=== PATIENT | male | born 1985 | race Hispanic/Latino ===

== ENCOUNTER 2017-10-14 11:58 | Emergency (ER) | payer SELFPAY ==
[~2017-10-14] VITALS: Ht 157.5 cm; Wt 84.0 kg
[~2017-10-14 11:58] MED LIST: CORTISPORIN OTI10 M1 OT; LORTAB 5/3255 MG PO; NO HOME MEDS; PRILOSEC OTC20 MG OR; TRIMOX500 MG PO; ZOFRAN ODT8 MG SL
[2017-10-14 13:00] LABS: HEMATOCRIT 43.6 % (39.0-50.0); IMMATURE GRANULOCYTES 0.5 % (0.0-1.0); MEAN CELL VOLUME 89.2 fL CALC (80.0-100.0); MEAN CORPUSCULAR HGB 30.7 pG CALC (26.0-32.0); MEAN CORPUSCULAR HGB CONC 34.4 g/L CALC (32.0-36.0); NEUT# 4.85 thou/uL (1.82-7.42); RED BLOOD COUNT 4.89 mill/uL (4.70-6.10); RED CELL DISTRI WIDTH 12.6 % (11.5-15.5)
[2017-10-14 13:16] LABS: ALBUMIN 4.7 g/dL (3.2-5.0); ALKALINE PHOSPHATASE 144 u/l (38-126); ANION GAP 16 (6-22 (CALC)); BILIRUBIN, TOTAL 0.4 mg/dL (0.0-1.4); BUN 15 mg/dL (9-20); BUN/CREATININE RATIO 15 (12-20 (CALC)); CALCIUM 9.6 mg/dL (8.4-10.2); CARBON DIOXIDE 27 mmol/l (22-30); CHLORIDE 104 mmol/l (95-108); GFR > 60 ML/MIN (>=60 (CALC)); GFR FOR AFR.AMER. > 60 ML/MIN (>=60 (CALC)); GLUCOSE 99 mg/dL (75-110); POTASSIUM 4.4 mmol/l (3.5-5.1); SGOT/AST 37 u/l (17-59); SGPT/ALT 81 u/l (21-72); SODIUM 143 mmol/l (137-146); TOTAL PROTEIN 7.8 g/dL (6.3-8.2)
[2017-10-14] MEDS ORDERED: INDOMETHACIN25 MG PO (13:30)
[2017-10-14] MEDS ORDERED: LORTAB 5/3255 MG PO (13:30)
[2017-10-14] MEDS ORDERED: COLCHICINE0.6 M2 PO (13:30)
[2017-10-14 13:53] VITALS: BP 123/60
== END 2017-10-14 14:10 | disposition home or self-care (01) | DRG 556 ==
LOC: ED 11:58
PROVIDERS: Emergency Medicine
DX: M79.672 Pain in left foot (principal)